=== PATIENT | male | born 1960 | race Caucasian/White ===

== ENCOUNTER 2019-10-10 14:54 | Outpatient (CLI) | payer OTHER ==
--- NOTE | 2019-10-10 16:08 | RAD ---
MRI screening facial bones one view HISTORY: Possible metallic foreign body of the orbits. FINDINGS: Single Marino' view shows no metallic foreign bodies over either orbit. Patient is cleared for MRI radiographically. There is subtle lobular well circumscribed expansion of the upper lateral margin of the left maxillar y sinus.. 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
--- NOTE | 2019-10-10 18:07 | MRI ---
MRI RIGHT SHOULDER PERFORMED WITHOUT CONTRAST ENHANCEMENT: History: Shoulder pain. FINDINGS: Some moderate arthrosis of the AC joint. The infraspinatus tendon is intact. There is a far anterior essentially non-retracted supraspinatus tendon tear. This involves almost the anterior half of the te ndon in this region. There is marked tendinosis of the posterior portion of the tendon and the tear d oes extend as a partial undersurface tear into the more posterior fibers of the supraspinatus tendon. The infraspinatus tendon appears intact. There is an undersurface tear of the subscapularis tendon with marked subluxation and almost complete intraarticular dislocation of the biceps tendon although it does come very close to the more distal bicipital groove. There are arthritic changes of the glenohumeral joint space. The humeral head is posterior subluxed. There is a chronic appearing tear of the superior and posterior superior labrum. The inferior glenohumeral ligament in intact. IMPRESSION: 1. Full thickness partial width supraspinatus tendon tear. The full thickness component of the tear i nvolves slightly less than the anterior half of the tendon as a non-retractive tear. The tear extends into the posterior half of the supraspinatus tendon as an undersurface tear. Some of the undersurfac e fibers are retracted by as much as 2 cm. There is no significant muscle atrophy associated with thi s. 2. Undersurface tear of the subscapularis tendon is almost complete intraarticular dislocation of the biceps tendon. 3. Moderate arthritic changes of the glenohumeral joint space. POS: [facility]
== END 2019-10-10 14:55 | disposition home or self-care (01) ==
LOC: TBSIIMAG 14:54
PROVIDERS: ATTEND Orthopaedic Surgery
DX: M75.41 Impingement syndrome of right shoulder (principal); M75.121 Complete rotator cuff tear or rupture of right shoulder, not specified as traumatic; S46.811A Strain of other muscles, fascia and tendons at shoulder and upper arm level, right arm, initial encounter; S43.084A Other dislocation of right shoulder joint, initial encounter; M19.011 Primary osteoarthritis, right shoulder
CPT/HCPCS: 70140

== ENCOUNTER 2019-11-04 07:12 | Outpatient (CLI) | payer OTHER ==
[2019-11-04 16:40] LABS: #Eosinphils 0.1 thou/uL (0.0-0.7); #Lymphocytes 1.9 thou/uL (1.20-3.40); #Monocytes 0.6 thou/uL (0.11-0.59); #Neutrophils 4.1 thou/uL (1.40-6.50); %Basophils 0.5 % (0.0-1.0); %Eosinophils 2.2 % (0.0-10.0); %Lymphocytes 28.4 % (21.0-51.0); %Monocytes 8.6 % (0.0-10.0); %Neutrophils 60.3 % (42.0-75.0); Hemoglobin 15.4 g/dL (14.0-18.0); Mean Corpuscular HGB CONC 35.8 g/dL (32.0-36.0); Mean Corpuscular Hemoglobin 34.1 pg (27.0-31.0); Mean Corpuscular Volume 95.2 fL (78.0-98.0); Mean Platelet Volume 8.3 fL (7.4-10.4); Platelet Count 217 thou/uL (130-400); RBC Distribution Width 11.8 % (11.5-14.5); Red Blood Cell (RBC) Count 4.51 mill/uL (4.70-6.10); White Blood Cell (WBC) Count 6.8 thou/uL (4.8-10.8)
== END 2019-11-04 07:13 | disposition home or self-care (01) ==
LOC: LABBT 07:12
PROVIDERS: ATTEND Orthopaedic Surgery
DX: Z01.812 Encounter for preprocedural laboratory examination (principal); S46.011A Strain of muscle(s) and tendon(s) of the rotator cuff of right shoulder, initial encounter
CPT/HCPCS: 85025

== ENCOUNTER 2019-11-08 06:59 | Day surgery (SDC) | payer OTHER ==
[2019-11-04 15:54] VITALS: BMI 28.8
[2019-11-08] MEDS ORDERED: Scopolamine 1.5 mg/72 hour Patch ONE (08:08)
[2019-11-08] MEDS ORDERED: Midazolam HCl 2 mg/2 ml Vial ONE (08:08)
[2019-11-08] MEDS ORDERED: Fentanyl 100 MCG/2 ML VIAL ONE ×2 (08:08→09:53)
[2019-11-08] MEDS ORDERED: Acetaminophen 325 MG TAB PO PRN (09:02)
[2019-11-08] MEDS ORDERED: traMADol HCl 50 MG TAB PO PRN ×2 (09:02)
[2019-11-08] MEDS ORDERED: Promethazine HCl 25 MG/ML VIAL IM PRN (09:02)
[2019-11-08] MEDS ORDERED: Zolpidem Tartrate 5 MG TAB PO PRN (09:02)
[2019-11-08] MEDS ORDERED: HYDROcodone/Acetaminophen 10/325 mg Tablet PO PRN ×2 (09:02)
[2019-11-08] MEDS ORDERED: Ondansetron PF 4 MG/2 ML Vial IVP PRN (09:02)
[2019-11-08] MEDS ORDERED: Ropivacaine 0.2% 550 ML 550 ML NERVE BLCK SCH (09:02)
[2019-11-08] MEDS ORDERED: Fentanyl 100 MCG/2 ML VIAL SLOW IVP PRN (09:03)
[2019-11-08] MEDS ORDERED: Glycopyrrolate 0.2 MG/ML 5 ML SYRINGE ONE (09:43)
[2019-11-08] MEDS ORDERED: Ondansetron PF 4 MG/2 ML Vial ONE (09:43)
[2019-11-08] MEDS ORDERED: Ropivacaine 0.5% HCl/PF (150 MG/30 ML VIAL) ONE (09:43)
[2019-11-08] MEDS ORDERED: PHENYLEPHRINE-NS 100 MCG/ML 10 ML SYRINGE ONE (09:43)
[2019-11-08] MEDS ORDERED: Rocuronium Bromide 10 MG/ML (10ML VIAL) ONE (09:43)
[2019-11-08] MEDS ORDERED: Lidocaine 1% PF 5 ML VIAL ONE (09:43)
[2019-11-08] MEDS ORDERED: EPHEDRINE 25 MG/5 ML SYRINGE ONE (09:43)
[2019-11-08] MEDS ORDERED: PROPOFOL 200 MG/20 ML VIAL ONE (09:43)
[2019-11-08] MEDS ORDERED: Dexamethasone 20 MG/5 ML VIAL ONE (09:43)
[2019-11-08] MEDS ORDERED: Ropivacaine 0.2% HCl/PF (40 MG/20 ML VIAL) ONE (09:43)
[2019-11-08] MEDS ORDERED: Lidocaine 1% w/Epinephrine 1:100K 20 ML VIAL ONE (10:21)
[2019-11-08] MEDS ORDERED: Phenylephrine 10 MG/ML VIAL ONE (10:48)
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
== END 2019-11-08 14:00 | disposition home or self-care (01) ==
LOC: SDC 06:59
PROVIDERS: ATTEND Orthopaedic Surgery
PROC: 0RHJ44Z Insertion of Internal Fixation Device into Right Shoulder Joint, Percutaneous Endoscopic Approach (ICD-10-PCS; principal; 2019-11-08)
PROC: 3E0T3BZ Introduction of Anesthetic Agent into Peripheral Nerves and Plexi, Percutaneous Approach (ICD-10-PCS; principal; 2019-11-08)
PROC: 0RNJ4ZZ Release Right Shoulder Joint, Percutaneous Endoscopic Approach (ICD-10-PCS; principal; 2019-11-08)
PROC: 0LQ14ZZ Repair Right Shoulder Tendon, Percutaneous Endoscopic Approach (ICD-10-PCS; principal; 2019-11-08)
PROC: 0LS14ZZ Reposition Right Shoulder Tendon, Percutaneous Endoscopic Approach (ICD-10-PCS; principal; 2019-11-08)
DX: S46.011A Strain of muscle(s) and tendon(s) of the rotator cuff of right shoulder, initial encounter (principal); S43.81XA Sprain of other specified parts of right shoulder girdle, initial encounter; S46.111A Strain of muscle, fascia and tendon of long head of biceps, right arm, initial encounter; G89.18 Other acute postprocedural pain
CPT/HCPCS: A4306; C1713; J0690; J1100; J2001; J2250; J2370; J2405; J2704; J2795; J3010

== ENCOUNTER 2020-07-06 13:52 | Outpatient (CLI) | payer OTHER ==
--- NOTE | 2020-07-06 14:43 | RAD ---
XR Lumbar Spine Bending Min 4V History: Back pain Comparison: MRI secondary Findings: 5 nonrib-bearing lumbar type vertebra. Degenerative 3 mm L4/L5 retrolisthesis. 2 mm L3/L4 r etrolisthesis. No significant translation with flexion or extension. There is also grade 1 L5 over S1 4 mm anterolisthesis also without significant translation with flexion or extension. No acute fracture or malalignment. Transverse processes are intact. Numerous phleboliths in the pelvis. Moderate L4/L5 and L5/S1 degenerative disc space height loss. Impression: Moderate spondylosis as described with multilevel fixed listhesis. No abnormal translatio n with flexion or extension.
--- NOTE | 2020-07-06 14:50 | MRI ---
MRI Lumbar Spine WO Con History: Lumbar radiculopathy Comparison: Radiograph same day Findings: The aortic contour is nonaneurysmal. No hydronephrosis. Retroperitoneum is normal. Multiple bilateral renal cysts. Levels are as follows: L1/L2: Mild disc desiccation and height loss. Small circumferential disc bulge. Minimal ventral CSF s pace effacement. No significant spinal canal narrowing. L2/L3: Mild disc desiccation height loss. No neural foraminal or spinal canal narrowing. Mild hypertr ophic facet arthrosis. Small lateral recess disc osteophyte complexes. L3/L4: Mild disc desiccation and height loss. Central and right paracentral and lateral recess disc p rotrusion abuts the right L4 and L5 nerve roots. This is superimposed upon a small disc osteophyte complex. Moderate right and mild left neural foraminal narrowing. L4/L5: Advanced degenerative disc space height loss and circumferential disc bulge. Grade 1 Modic end plate change on the right side of the L4/L5 joint. Asymmetric right lateral recess, subsequent foraminal and extraforaminal disc osteophyte complex. Moderate right and mild left neural foraminal n arrowing. Abutment of the right exiting nerve root. L5/S1: Bilateral L5 pars interarticularis defects with grade 1 anterolisthesis. Posterior displacemen t of disc material as an adaptation to subluxation. Moderate to severe bilateral neural foraminal narrowing. Grade 2 Modic endplate change. Impression: Moderate spondylosis with multilevel neural foraminal narrowing.
== END 2020-07-06 13:53 | disposition home or self-care (01) ==
LOC: TBSIIMAG 13:52
PROVIDERS: ATTEND Neurological Surgery
DX: M54.9 Dorsalgia, unspecified (principal); M47.816 Spondylosis without myelopathy or radiculopathy, lumbar region; M48.061 Spinal stenosis, lumbar region without neurogenic claudication
CPT/HCPCS: 72120; 72148

== ENCOUNTER 2021-03-04 09:23 | Outpatient (CLI) | payer OTHER | END 2021-03-04 09:24 | disposition home or self-care (01) | LOC: TBSIIMAG 09:23 | PROVIDERS: ATTEND Neurological Surgery | DX: M54.5 Low back pain (principal); Z98.890 Other specified postprocedural states | CPT/HCPCS: 72100 ==

== ENCOUNTER 2021-04-12 12:38 | Outpatient (CLI) | payer OTHER | END 2021-04-12 12:39 | disposition home or self-care (01) | LOC: TBSIIMAG 12:38 | PROVIDERS: ATTEND Neurological Surgery | DX: M54.5 Low back pain (principal); M47.816 Spondylosis without myelopathy or radiculopathy, lumbar region; Z98.1 Arthrodesis status | CPT/HCPCS: 72100 ==

== ENCOUNTER 2021-10-15 09:03 | Outpatient (CLI) | payer OTHER | END 2021-10-15 09:04 | disposition home or self-care (01) | LOC: TBSIIMAG 09:03 | PROVIDERS: ATTEND Neurological Surgery | DX: M54.50 Low back pain, unspecified (principal); Z98.890 Other specified postprocedural states | CPT/HCPCS: 72100 ==